=== PATIENT | female | born 1965 | race Caucasian/White ===

== ENCOUNTER 2021-09-10 01:49 | Emergency (ER) | payer MEDICAID ==
[2021-09-10] MEDS ORDERED: Ibuprofen 800 MG Tab PO ONE (02:38)
== END 2021-09-10 04:46 | disposition home or self-care (01) ==
LOC: MW.ED 01:49
DX: S93.602A Unspecified sprain of left foot, initial encounter (principal); S39.012A Strain of muscle, fascia and tendon of lower back, initial encounter; W18.41XA Slipping, tripping and stumbling without falling due to stepping on object, initial encounter
CPT/HCPCS: 73630-26-LT; 73630-LT; 99282; 99283